=== PATIENT | female | born 1995 | race Caucasian/White ===

== ENCOUNTER 2024-08-04 09:38 | Emergency (ER) | payer OTHER, SELFPAY ==
[2024-08-04 09:40] VITALS: BP 155/102
--- NOTE | 2024-08-04 10:25 | ED.GENMED ---
History of Present Illness
General
Chief Complaint: Abdominal Pain
Source: patient
Exam Limitations: none
Time Seen by Provider: 08/04/24 10:18
History of Present Illness
History of Present Illness:
See MDM
Past History
Past History
ED Past Medical History: Psychiatric (Depression, posttraumatic stress disorder, suicidal thoughts.)
ED Past Surgical History: Urological (Atrophic right kidney removed at age 4.)
Social History
Tobacco: Smoker
Alcohol: Daily
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
Personal: Single
Living: with family (Resides with father)
Employment: Not employed
Family History
Family History: Other (Noncontributory)
Phy Exam
Physical Exam
Physical Exam:
See MDM
Course
Orders/Labs/Results
Orders:
Orders
08/04/24 10:24
CT Abd/pelvis W Iv Cont Urgent
Comment:
Reason For Exam: generalized abd pain and diarrhea
0.9% Sodium Chloride 1000 ml [Nss] 1,000 ml IV BOLUS
Ondansetron Injectable [Zofran] 4 mg IV NOW STA
Pantoprazole [Protonix IV] 40 mg IV NOW STA
Test Result ONCE
08/04/24 10:33
Complete Blood Count/With Diff Urgent
Comprehensive Metabolic Panel Urgent
HCG, Serum Qualitative Screen Urgent
Abnormal Lab Results
08/04/24
10:33
RBC 5.43 H 10^6/uL
(4.20-5.40)
MCV 80.1 L fL
(81.0-99.0)
MPV 11.4 H fL
(7.4-10.4)
Absolute Neuts (auto) 8.1 H 10^3/uL
(1.4-6.5)
Neutrophils % 79.2 H %
(42.2-75.2)
Lymphocytes % 14.7 L %
(20.5-51.1)
Creatinine 1.2 H mg/dL
(0.6-1.0)
Glucose 112 H mg/dl
(70-99)
Calcium 10.7 H mg/dl
(8.4-10.2)
Total Bilirubin 1.6 H mg/dl
(0.2-1.3)
ALT 42 H U/L
(0-35)
08/04/24 10:33
08/04/24 10:33
Vital Signs
Initial and Last Documented VS:
Initial Vital Signs
Temp Pulse Resp BP Pulse Ox
98.6 F 68 20 155/102 98
08/04/24 09:40 08/04/24 09:40 08/04/24 09:40 08/04/24 09:40 08/04/24 09:40
Last Documented Vital Signs
Temp Pulse Resp BP Pulse Ox
98.6 F 68 20 104/66 98
08/04/24 09:40 08/04/24 09:40 08/04/24 09:40 08/04/24 12:00 08/04/24 12:45
MDM/Problems Addressed
Differential Diagnosis Includes:
HPI and MDM Narrative:
28-year-old female who identifies as male is presenting with generalized abdominal discomfort. He states that the pain is more upper abdomen and he has been nauseous. He has had several episodes of diarrhea which were described as dark-colored and
intermittently bloody. He denies a prior history of inflammatory bowel disease. No prior history of colonoscopy or EGD. He is not overdosing on NSAIDs. The pain is vague but his abdominal exam is very benign. Will give IV fluids and provide IV
Protonix. We did discuss the possibility of gastritis versus GI bug versus peptic ulcer disease. Will obtain CT scan looking for alternative diagnoses. If CT scan relatively negative and blood work without significant abnormalities and patient
feeling better, will consider discharge home with GI follow-up
Physical exam
General: Well appearing and non-toxic
HEENT: protecting airway. Mildly dry mucous membrane
Neck: appears supple
CV: No evidence of cyanosis
Resp: No accessory muscle use
Abd: Non-distended. Benign abdomen. Mild epigastric and mid abdominal discomfort. No rebound
Extremities: No deformities
Neuro: alert
Psych: Normal affect
Skin: Intact
Problems Addressed including Acute and Chronic Conditions affecting care:
1. Abdominal pain and diarrhea
Acuity: acute
Prognosis: stable
Details: Given persistence of symptoms, will obtain CT scan. Will treat as likely peptic ulcer disease versus gastritis with Protonix
Updates
CT negative for acute pathology. We discussed likely splenomegaly but discussed this could be explained by viral illness. Regardless discussed treating his gastritis and follow-up with GI. Patient feels comfortable going home
1:11 PM at discharge, patient did acknowledge that he started drinking alcohol again and relapsed. This is likely the cause of the pain.
Differential Diagnosis (but not limited to): Gastritis, peptic ulcer disease, inflammatory bowel disease, viral gastroenteritis
Testing considered: Stool studies
Drug therapy (if applicable): OTC meds, please see d/c instruction regarding Rx drugs
Amount and/or Complexity of Data Reviewed
Clinical info obtained from: Patient
External data reviewed: N/A
Labs I independently reviewed (but not limited to): Creatinine 1.2
Radiology: The CT scan was personally and independently reviewed. In addition, official CT report reviewed.
Pulse Ox: not hypoxic
EKG independently reviewed: N/A
Property Master: N/A
Critical Care: N/A
Risk of Complication:
Social Determinants of health: Good social support
Discussed with other providers: N/A
Escalation of Care includes Admit/Obs: After being observed in the Emergency Department, pt stable for discharge.
Occasional wrong word or 'sound a like' substitutions may have occurred due to the inherent limitations of voice recognition software. Read the chart carefully and recognize, using context, where substitutions have occurred.
*Critical Care Note
Total Time (30-74mins, 75-104mins- exclusive of procedures): Not Applicable
ED Attending Note
-
Portions of this chart may have been created with voice recognition software.� Occasional wrong word or��sound alike� substitutions may have occurred due to the inherent limitations of voice recognition software.
Discharge Plan
Departure
Patient Disposition: Home (Routine Discharge)
Date of Disposition: 08/04/24
Time of Disposition: 12:41
Patient with high blood pressure during this ER visit?: No
Discharge Problem:
Abdominal pain
Instructions: Abdominal Pain
Prescriptions:
New
famotidine [Pepcid] 20 mg tablet
20 mg PO DAILY Qty: 14 0RF
Referrals:
Wellington Roldan MD [Active] -
NONE,* [Family Provider] -
Activity Restrictions/Additional Instructions:
Please return for any worsening symptoms.
You may return at any time if you have further concerns.
Please follow up with your doctor at the first available appointment, preferably this week.
Is not certain what is causing your symptoms. You may have gastritis. If symptoms persist, please make an appointment with a wellness trainer to better evaluate this by endoscopy.
Thank you for choosing [facility].
Interventions
Interventions:
*Risk Screen - Suicide Last Done: 08/04/24 09:40
*General Assessment Last Done: 08/04/24 10:43
*Neglect/Abuse Screening Last Done: 08/04/24 09:40
ED- Fall Risk Assessment Last Done: 08/04/24 10:42
*ED COVID-19 Vaccine History Last Done: 08/04/24 10:43
OS-Hxsyku-Saznzmobzj Assessment Last Done: 08/04/24 10:44
Discharge Date and Time
Print Language: PERSIAN
[2024-08-04] MEDS: NSS 1000 IV (10:40)
[2024-08-04] MEDS: PROTONIX IV 40 MG IV (10:40)
[2024-08-04] MEDS: ZOFRAN 4 MG IV (10:40)
[2024-08-04 10:42] VITALS: BP 121/79; BMI 46.3
[2024-08-04 10:46] LABS: % Basophils 0.5 % (0-2); % Eosinophils 0.3 % (0-6); % Immature Granulocytes 0.2 % (0-0.5); % Lymphocytes 14.7 % (20.5-51.1); % Monocytes 5.1 % (1.7-9.3); % Neutrophils 79.2 % (42.2-75.2); Absolute Basophils 0.1 10^3/uL (0-0.2); Absolute Lymphocytes 1.5 10^3/uL (1.2-3.4); Absolute Monocytes 0.5 10^3/uL (0.1-0.6); Absolute Neutrophils 8.1 10^3/uL (1.4-6.5); Hematocrit 43.5 % (37.0-47.0); Mean Corp Hgb Conc. 36.8 g/dL (33.0-37.0); Mean Corpuscular Hgb 29.5 pg (27.0-31.0); Mean Corpuscular Volume 80.1 fL (81.0-99.0); Mean Platelet Volume 11.4 fL (7.4-10.4); Nucleated Red Blood Cells % 0 %; Platelet Count 292 10^3/uL (130-400); Red Blood Cell Count 5.43 10^6/uL (4.20-5.40); Red Cell Dist. Width 12.7 % (11.5-14.5); White Blood Cell Count 10.3 10^3/uL (4.8-10.8)
[2024-08-04 10:54] LABS: HCG, Serum Qualitative Screen Negative
[2024-08-04 10:57] LABS: ALT (SGPT) 42 U/L (0-35); AST (SGOT) 36 U/L (14-36); Albumin 4.7 g/dl (3.5-5.0); Alkaline Phosphatase 105 U/L (38-126); Blood Urea Nitrogen 13 mg/dl (7-17); Calcium 10.7 mg/dl (8.4-10.2); Carbon Dioxide 27 mmol/L (22-30); Chloride 102 mmol/L (98-107); Estimated Creatinine Clearance 81 ml/min; Glucose 112 mg/dl (70-99); Potassium 3.9 mmol/L (3.5-5.1); Sodium 139 mmol/L (135-145); Total Bilirubin 1.6 mg/dl (0.2-1.3); eGFR > 60.00
[2024-08-04 11:00] VITALS: BP 118/68
[2024-08-04 11:30] VITALS: BP 119/88
[2024-08-04 12:00] VITALS: BP 104/66
[2024-08-04 13:00] VITALS: BP 127/92
== END 2024-08-04 13:24 | disposition home or self-care (01) ==
LOC: EMR 09:38
PROVIDERS: EMERGENCY PHYSICIAN Student in an Organized Health Care Education/Training Program
DX: R10.9 Unspecified abdominal pain (principal); F32.A Depression, unspecified; F43.10 Post-traumatic stress disorder, unspecified; F17.200 Nicotine dependence, unspecified, uncomplicated; Z90.5 Acquired absence of kidney
CPT/HCPCS: 99284; 96374; 96375; 96361; 74177; 80053; 84703; 85025; Q9967